=== PATIENT | male | born 1995 | race Hispanic/Latino ===

== ENCOUNTER 2018-06-10 22:33 | Emergency (ER) | payer OTHER ==
[2018-06-10] MEDS ORDERED: HYDROcodone/Acetaminophen 10/325 mg Tablet ONE (23:13)
[2018-06-10] MEDS ORDERED: Cephalexin 500 MG CAP ONE (23:14)
[2018-06-10] MEDS ORDERED: Adacel (T-DAP) 0.5 ML VIAL ONE (23:14)
[2018-06-10] MEDS ORDERED: Bacitracin Zinc 1 Packet ONE (23:30)
--- NOTE | 2018-06-11 07:16 | RAD ---
LEFT THUMB 3 VIEWS: Date: 06/10/18 There is a longitudinal fracture through the distal phalanx of the thumb, however, this may not be ac irving. The joints are unremarkable in appearance. There is no dislocation. IMPRESSION: Distal phalanx fracture of indeterminate age. Correlate with prior history. CODE T. POS: HOME
== END 2018-06-10 23:34 | disposition home or self-care (01) ==
LOC: BURERS 22:33
DX: S61.032A Puncture wound without foreign body of left thumb without damage to nail, initial encounter (principal); F17.210 Nicotine dependence, cigarettes, uncomplicated; W22.8XXA Striking against or struck by other objects, initial encounter
CPT/HCPCS: 10120; 90471; 90715